=== PATIENT | female | born 1990 | race Asian ===

== ENCOUNTER 2023-05-01 05:12 | Day surgery (SDC) | payer OTHER ==
[2023-04-28 11:09] VITALS: BMI 25.4
[2023-05-01] MEDS: ceFAZolin SODIUM 1 GM VIAL IVPB ONE
[2023-05-01] MEDS ORDERED: FENTANYL CITRATE/PF 50 MCG/ML VIAL ONE ×2 (10:23→10:28)
[2023-05-01] MEDS ORDERED: MIDAZOLAM HCL 2 MG/2 ML SINGLE DOSE VIAL ONE (10:24)
[2023-05-01] MEDS ORDERED: SUCCINYLCHOLINE CHLORIDE 200 MG/10 ML SYRINGE ONE (10:28)
[2023-05-01] MEDS ORDERED: PROPOFOL 40 ML ONE (10:28)
[2023-05-01 12:38] VITALS: RESP 18
[2023-05-01 14:39] VITALS: BP 111/71; PULSE 75; TEMP 98.4
== END 2023-05-01 14:10 | disposition home or self-care (01) ==
LOC: JASU-SURG 05:12
PROVIDERS: ATTEND Obstetrics & Gynecology
PROC: 10D07Z8 Extraction of Products of Conception, Other, Via Natural or Artificial Opening (ICD-10-PCS; principal; 2023-05-01 10:00)
DX: O02.1 Missed abortion (principal)
CPT/HCPCS: 86850; 86900; 86901; 88305-TC; 94760